=== PATIENT | male | born 1965 | race Caucasian/White ===

== ENCOUNTER 2020-07-06 14:48 | Emergency (ER) | payer BC, SELFPAY ==
[2020-07-06 15:02] VITALS: BP 135/72; PULSE 75; RESP 16; TEMP 37; O2SAT 99
[2020-07-06 15:20] VITALS: BP 135/72; PULSE 75; RESP 16; TEMP 37; O2SAT 99
--- NOTE | 2020-07-06 15:22 | ED.URI ---
HPI - URI/Sore Throat General Chief Complaint: Upper Respiratory Infection Stated Complaint: Cough Source: patient and RN notes reviewed Limitations: no limitations History of Present Illness HPI Narrative: The patient, who is a smoker/rare drinker, presents with cough. Patient states he has a has half week history of fever to 100.5, congestion, slightly productive cough-that he believes occurs in a seasonal basis. No sore throat, earache, S OB, rash, sputum changes, wheezing, vomiting/diarrhea, sick family, travel history, loss of taste or smell. Symptoms are mild worse upon awakening the morning, and he requests work note. Related Data Allergies Allergy/AdvReac Type Severity Reaction Status Date / Time No Known Allergies Allergy Verified 07/06/20 14:52 Review of Systems Review of Systems: Narrative: General/Constitutional: No weight loss,fever Eyes: N0: Redness,discharge Ears/Nose/Throat: No: Epistaxis,ear discharge Respiratory: Denies: Hemoptysis Gastrointestinal: No Vomiting, Bleeding-rectal Skin: No Lumps, eruption Neurologic: No Focal Weakness,Sz Hematologic: Denies: Petechiae/Purpura Psychiatric: No: Suicida ideationl All Other Systems: Reviewed and Negative PMFSH Comments At time of signature, agree with nursing past medical, surgical, social and family history. There is no relevant family history pertinent to the presenting complaint Exam Narrative: Exam Narrative: General Appearance: Well appearing, Well nourished EYE: PERRLA, Conjunctiva clear Ears: Auditory canal normal, TM normal Nose: Rhinorrhea, Mucousal erythema Mouth/Throat: MM moist, Uvula midline, Pharyngeal erythema Neck: Supple, No adenopathy Respiratory: No respiratory distress, Breath equal, airway patent Musculoskeletal: Non tender, Normal strength Skin: Warm, Dry Neurological: A&O x3, CN II-XII intact Psychiatric: Normal mood, Normal affect Course Vital Signs Vital signs: Vital Signs Temperature 98.6 F 07/06/20 15:02 Pulse Rate 75 07/06/20 15:02 Respiratory Rate 16 07/06/20 15:02 Blood Pressure 135/72 07/06/20 15:02 Pulse Oximetry 99 07/06/20 15:02 Temperature 98.6 F 07/06/20 15:20 Pulse Rate 75 07/06/20 15:20 Respiratory Rate 16 07/06/20 15:20 Blood Pressure 135/72 07/06/20 15:20 Pulse Oximetry 99 07/06/20 15:20 Discharge Plan Discharge Clinical Impression: Upper respiratory infection Qualifiers: URI type: unspecified URI Qualified Code(s): J06.9 - Acute upper respiratory infection, unspecified Patient Disposition: Home, Self-Care Condition: Stable Instructions: Antibiotic Form, Acute Bronchitis (ED) Prescriptions: New azithromycin 250 mg tablet See Rx Instructions .ROUTE .COMPLEX Qty: 6 RF: 0 benzonatate [Tessalon Perles] 100 mg capsule 100 mg PO TID Qty: 20 RF: 1 codeine-guaifenesin 10-100 mg/5 mL liquid 7.5 ml PO Q6H PRN (Reason: cough) Qty: 118 RF: 0 albuterol sulfate [Ventolin HFA] 90 mcg/actuation HFA aerosol inhaler 2 puff INHALATION QID PRN (Reason: shortness of breath or wheezing) Qty: 1 RF: 1 Other Ambulatory Orders: SARS-CoV-2 RNA, Qual RT-PCR (Routine) Location: Determined by Patient Ordered By: Fabiano Ward Follow-up/Referrals: UNKNOWN,DOCTOR [Primary Care Provider] - Stand Alone Forms: Work/School Release IP
== END 2020-07-06 15:31 | disposition home or self-care (01) ==
PROVIDERS: Emergency Provider Emergency Medicine
DX: J06.9 Acute upper respiratory infection, unspecified (principal); F17.200 Nicotine dependence, unspecified, uncomplicated; H54.61 Unqualified visual loss, right eye, normal vision left eye; Z20.828 Contact with and (suspected) exposure to other viral communicable diseases
CPT/HCPCS: 99203; G0463